=== PATIENT | female | born 1980 | race Caucasian/White ===

== ENCOUNTER → 2017-05-07 09:54 | Outpatient (CLI) | payer OTHER, SELFPAY ==
--- NOTE | 2017-05-07 10:01 | US_ITS ---
US abdomen limited: HISTORY: Right upper quadrant pain with nausea and fever ITS.REASON: RUQ PAIN ORDERING PHYSICIAN: Rema Eduardo PATIENT AGE: 36 years COMPARISON: None FINDINGS: PANCREAS: Unremarkable. No obvious mass or abnormal fluid collection. No ductal dilatation LIVER: No focal liver lesions demonstrated. Homogeneous echogenicity. No intrahepatic biliary ductal dilatation evident RIGHT KIDNEY: Unremarkable. Normal size and echogenicity. No hydronephrosis GALLBLADDER: No gallstones, gallbladder wall thickening, pericholecystic fluid, or biliary dilatation. IMPRESSION: Negative gallbladder/right upper quadrant ultrasound
[2017-05-07 10:52] LABS: Basophils # 0.1 K/mm3 (0-0.2); Basophils % 0.7 % (0.1-2.0); Eosinophils # 0.5 K/mm3 (0.0-0.4); Hematocrit 40.6 % (37.0-47.0); Hemoglobin 13.7 g/dL (12.2-16.2); Lymphocytes # 2.1 K/mm3 (0.7-4.5); Lymphocytes % 29.6 K/mm3 (10-50); Mean Corpuscular HGB Conc 33.8 g/dL (31.8-35.4); Mean Corpuscular Volume 91.8 fl (81-99); Mean Platelet Volume 8.6 fl (7.4-10.4); Monocytes # 0.4 K/mm3 (0.1-1.0); Monocytes % 6.1 % (1.7-9.3); Neutrophils # 4.1 K/mm3 (1.8-7.8); Neutrophils % 56.7 % (37.0-80.0); Platelet Count 288 K/mm3 (142-424); Red Blood Count 4.42 M/mm3 (4.20-5.40); Red Cell Distribution Width 12.7 % (11.5-17.5); White Blood Count 7.2 K/mm3 (4.8-10.8)
[2017-05-07 11:34] LABS: Alanine Aminotransferase 27 U/L (12-78); Albumin Level 3.7 gm/dL (3.4-5.0); Albumin/Globulin Ratio 1.1 (1.1-1.8); Alkaline Phosphatase 72 U/L (46-116); Anion Gap 11.5 mEq/L (5-15); Aspartate Amino Transferase 11 U/L (15-37); Bilirubin,Total 0.2 mg/dL (0.2-1.0); Blood Urea Nitrogen 14 mg/dL (7-18); Calcium 8.9 mg/dL (8.5-10.1); Carbon Dioxide 29 mmol/L (21.0-32.0); Chloride 106 mmol/L (98-107); Creatinine,Serum 0.61 mg/dL (0.55-1.02); Estimated Glomerular Filt Rate 112 ml/min (>60); GFR (African American) 135 ML/MIN (>60); Globulin 3.3 gm/dl (1.3-3.2); Glucose 95 mg/dL (74-106); Potassium 4.5 mmoL/L (3.5-5.1); Sodium 142 mmol/L (136-145)
== END ==
PROVIDERS: PCP Internal Medicine Adolescent Medicine; Visit Provider Nurse Practitioner Family
DX: R10.11 Right upper quadrant pain (principal)
CPT/HCPCS: 36415; 76705; 80053; 85025

== ENCOUNTER → 2017-06-13 10:32 | Outpatient (CLI) | payer OTHER, SELFPAY ==
--- NOTE | 2017-06-13 10:40 | NM_ITS ---
NM hepatobiliary wo pharm HISTORY: Right upper quadrant pain ITS.REASON: RUQ PAIN, GERD ORDERING PHYSICIAN: Rema Eduardo PATIENT AGE: 36 years COMPARISON: None DOSE: 7.84 MCI technetium Choletec Fatty Meal: Ensure FINDINGS: Homogeneous activity is present within the hepatic parenchyma. Activity is present in the gallbladder by 10 minutes. Activity is present in the small bowel by 50 minutes. The gallbladder ejection fraction is calculated to be 32% The patient did not report pain or other symptoms during the fatty meal. IMPRESSION: 1. No evidence of common or cystic duct obstruction. 2. Slightly low gallbladder ejection fraction which may indicate mild gallbladder dyskinesia. Please correlate with clinical findings.
== END ==
PROVIDERS: Family Provider Nurse Practitioner Family; PCP Internal Medicine Adolescent Medicine; Visit Provider Nurse Practitioner Family
DX: R10.11 Right upper quadrant pain (principal); K21.9 Gastro-esophageal reflux disease without esophagitis
CPT/HCPCS: 78226; A9537

== ENCOUNTER → 2017-07-23 18:28 | Outpatient (CLI) | payer OTHER, SELFPAY | PROVIDERS: PCP Internal Medicine Adolescent Medicine; Visit Provider Nurse Practitioner Family | DX: G47.30 Sleep apnea, unspecified (principal); R06.83 Snoring; Z68.41 Body mass index [BMI] 40.0-44.9, adult | CPT/HCPCS: 95806 ==

== ENCOUNTER → 2017-12-19 20:24 | Outpatient (CLI) | payer OTHER, SELFPAY | PROVIDERS: PCP Internal Medicine Adolescent Medicine; Visit Provider Nurse Practitioner Family | DX: G47.33 Obstructive sleep apnea (adult) (pediatric) (principal); G47.30 Sleep apnea, unspecified; R06.83 Snoring; E66.9 Obesity, unspecified | CPT/HCPCS: 95810 ==

== ENCOUNTER 2019-09-30 15:00 | Outpatient (RCR) | payer OTHER, SELFPAY ==
--- NOTE | 2019-08-25 11:32 | HMH.PTOPEV ---
PT Outpatient Evaluation Rehab PT Outpatient Evaluation Start: 08/25/19 11:22 Freq: Status: Active Protocol: Document 08/25/19 11:22 WALDO (Rec: 08/25/19 11:32 WALDO [id number]) Electronically Signed By Jose Cruz Choe, PT 08/25/19 11:22 Outpatient Therapy Subjective History Subjective History Pt reports insidious onset CT junction area pain, as well as R sided neck pain and radicular s/s into RUE. 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 Pt reports weakness and numbness in RUE w/this episode . Chief Complaint Pain,Stiff,Paresthesia, Weakness Symptom Type Ache,Sharp,Dull,Numbness Symptoms Relieved By Rest/Positioning,Heat, Prescription Meds Symptoms Aggravated By Sitting Prior Functional Limitations Desk Work/Reading Current Functional Limitations Reaching,Lifting,Housework, Desk Work/Reading Level of pain today (0-10) 2 Pain scale - at its best (0-10) 1 Pain scale - at its worst (0-10) 7 Cervical Eval Palpation Cervical Muscles R Cervical Paraspinal,L Cervical Paraspinal,R CT Junction,L CT Junction,R Upper Trapezius,L Upper Trapezius Cervical/Thoracic Palpation Findings Tenderness,Trigger Point Posture Head/C-Spine Posture Sitting Position Flexed Head/C-Spine Posture Standing Position Flexed Flexibility Deficits Upper Trapezius Muscle Length (R) Moderate Tightness,(L) Moderate Tightness Levaetor Scapulae Muscle Length (R) Moderate Tightness,(L) Moderate Tightness Scalene Group Muscle Length (R) Moderate Tightness,(L) Moderate Tightness Passive Joint Mobility Cervical PIVM WNL: R OA L OA R AA L AA R C2/3 L C2/3 R C3/4 L C3/4 R C4/5 L C4/5 R C5/6 L C5/6 R C6/7 L C6/7 R C7/T1
--- NOTE | 2019-09-30 15:27 | HMH.RHREAS ---
Rehab Reassessment Rehab OP Re-assessment Start: 09/30/19 15:01 Freq: Status: Active Protocol: Document 09/30/19 15:03 JIMMARGAUX (Rec: 09/30/19 15:13 JIMMARGAUX [id number]) Electronically Signed By Jose Cruz Choe, PT 09/30/19 15:03 Rehab Re-assessment Subjective Subjective Pt reports being on vacation for ~ 2 weeks, and 'I haven't been in pain for that long, but I'm not sure how long this is gonna last'. Objective Objective Notes CROM: FLX 0-55, EXT 0-55, B SB 0-40, B ROT 0-45 MMT: B DELTOID 4-4+/5, B BICEP 4+/5, B TRICEP 4+/5, B WRIST FLX/EXT 5/5 TTP: B UT 0-03/29, CT JUNCTION S .P. /4 Assessment Progress Assessment Progressing as Expected Assessment Notes PT W/MARKED IMPROVEMENT IN CROM, STRENGTH, AND TTP Patient goals met STG'S 12/02 LTG'S 07/02 Goals Not Met LTG'S 08/01 Plan Plan PT TO CONT. W/SKILLED P.T. TO MAKE FURTHER IMPROVEMENTS IN CROM, STRENGTH, AND TTP TO ALLOW FOR OPTIMAL FUNCTION Frequency of Therapy 1-2X/WK Duration of therapy 3-4WKS Time and Billing Re-Eval Time 15 Re-Eval Billing Units 1 PHYSICIAN CERTIFICATION: I certify the specified therapy services for Sayra Arizmendi Bailon are required, authorized, and reviewed every 30 days.
== END 2019-09-30 15:05 | disposition home or self-care (01) ==
LOC: PT 15:00
PROVIDERS: PCP Internal Medicine Adolescent Medicine; Visit Provider Internal Medicine Adolescent Medicine
DX: M54.12 Radiculopathy, cervical region (principal)
CPT/HCPCS: 20560; 97010; 97012; 97014; 97035; 97110; 97163; 97164; G0283

== ENCOUNTER → 2020-01-23 08:24 | Outpatient (CLI) | payer OTHER, SELFPAY ==
[2020-01-23 08:39] LABS: Basophils # 0.1 K/mm3 (0-0.2); Eosinophils # 0.4 K/mm3 (0.0-0.4); Eosinophils % 4.9 % (0.1-12.0); Hemoglobin 14.7 g/dL (12.2-16.2); Lymphocytes % 24.9 % (10-50); Mean Corpuscular HGB Conc 34.9 g/dL (31.8-35.4); Mean Corpuscular Hemoglobin 31.9 pg (27.0-31.2); Mean Corpuscular Volume 91.2 fl (81-99); Mean Platelet Volume 8.3 fl (7.4-10.4); Monocytes # 0.4 K/mm3 (0.1-1.0); Monocytes % 5.1 % (1.7-9.3); Neutrophils # 5.2 K/mm3 (1.8-7.8); Platelet Count 370 K/mm3 (142-424); Red Cell Distribution Width 13.1 % (11.5-17.5); White Blood Count 8.1 K/mm3 (4.8-10.8)
[2020-01-23 10:18] LABS: Alanine Aminotransferase 16 U/L (12-78); Albumin Level 4.5 g/dl (3.5-5.0); Albumin/Globulin Ratio 1.6 (1.1-1.8); Alkaline Phosphatase 69 U/L (38-126); Anion Gap 14.4 mEq/L (5-15); Aspartate Amino Transferase 22 U/L (14-36); Bilirubin,Total 0.6 mg/dl (0.2-1.3); Blood Urea Nitrogen 13 mg/dl (7-17); Calcium 9.9 mg/dl (8.4-10.2); Carbon Dioxide 28 mmol/L (22.0-30.0); Chloride 105 mmol/L (98-107); Chol/HDL Ratio 2.6 (1-3.5); Cholesterol 149 mg/dl (140-200); Estimated Glomerular Filt Rate 94 ml/min (>60); GFR (African American) 113 ML/MIN (>60); Globulin 2.9 g/dL (1.3-3.2); Glucose 87 mg/dl (74-100); HDL Cholesterol 58 mg/dl (40-60); Potassium 4.4 mmoL/L (3.5-5.1); Sodium 143 mmol/L (136-145); Total Protein,Serum 7.4 g/dl (6.3-8.2); Triglycerides 68 mg/dl (30-150); VLDL Cholesterol 14 mg/dL (0-40)
[2020-01-23 10:29] LABS: Direct LDL Cholesterol 74.13 mg/dL (100-129)
[2020-01-23 10:47] LABS: Thyroid Stimulating Hormone 2.23 uIU/mL (0.465-4.68)
[2020-01-23 10:52] LABS: Hemoglobin A1C 5.2 % (4.0-6.0)
== END ==
PROVIDERS: Visit Provider Nurse Practitioner Family
DX: Z00.00 Encounter for general adult medical examination without abnormal findings (principal); Z79.899 Other long term (current) drug therapy
CPT/HCPCS: 36415; 80053; 80061; 83036; 84443; 85025

== ENCOUNTER 2020-06-06 14:52 | Emergency (ER) | payer OTHER, SELFPAY ==
[2020-06-06 14:58] VITALS: BP 133/90; PULSE 73; RESP 18; TEMP 36.6; O2SAT 98; BMI 34.7
[2020-06-06 15:09] VITALS: BP 136/87; PULSE 79; RESP 18; TEMP 36.8; O2SAT 99; BMI 34.9
[2020-06-06 15:18] LABS: UTC Strep Screen (Rapid) Negative (Negative)
--- NOTE | 2020-06-06 15:31 | HMH.EDUTC ---
[facility] Disposition Clinical Impression: Stomatitis Pharyngitis Qualifiers: Pharyngitis/tonsillitis etiology: unspecified etiology Qualified Code(s): J02.9 - Acute pharyngitis, unspecified Disposition: Home, Self-Care Condition on Discharge: Good Instructions: DI for Pharyngitis/Tonsillopharyngitis -- Adult Additional Instructions: Drink plenty of fluids. Take tylenol for pain or fever. Return if your symptoms are worsening. Follow up with your regular doctor. GO TO THE ER FOR ANY WORSENING SYMPTOMS Prescriptions: predniSONE [Deltasone 10mg tablet] 10 mg PO BID 4 Days #8 tab Transmission Status: Received by [facility] # Azithromycin [Z-Grant 250mg Tab*] 250 mg PO UD DOSE PK #6 tab Transmission Status: Received by [facility] # Referrals: Morris Stephens MD [Primary Care Provider] - Time of Disposition: 15:34 Medical Decision Making - Medical Records Medical records reviewed: No: I reviewed the patient's medical records. - Jhonathan Inquiry Pt receiving controlled substance: No Vital Signs: 06/06/20 14:58 06/06/20 15:09 06/06/20 15:36 Temperature 97.9 F 98.2 F 98 F Temperature Source Oral Oral Oral Pulse Rate 74 Pulse Rate [Right Brachial] 73 79 Respiratory Rate 18 18 19 Blood Pressure 132/87 Blood Pressure [Right Arm] 133/90 136/87 Blood Pressure Mean [Right Arm] 104 103 Blood Pressure Source [Right Arm] Automatic Cuff Automatic Cuff Blood Pressure Position Sitting Blood Pressure Position [Right Arm] Sitting Sitting 02 Sat by Pulse Oximetry 98 99 Oxygen Delivery Method Room Air Room Air - Lab Data Lab results reviewed: Yes: I reviewed the patient's lab results. Lab Results 06/06/20 15:08: Strep Scn Rapid Clinic Negative Orders (Tests/Meds): ORDERS Category Date Time Status Strep Screen Confirmation Stat Micro 06/06/20 15:08 Received [facility] HPI - General Stated complaint: sore throat,fatigued Time Seen by Provider: 06/06/20 15:31 Mode of Arrival: Ambulatory Source of Information: Patient Limitations: No Limitations Description of Symptoms (Recalled from Triage Doc. by RN): pt is having a sore throat and thinks its strep. HEENT Symptoms (Recalled from RN notes): Yes (sore throat) Resp Symptoms (Recalled from RN notes): No Skin Symptoms (Recalled from RN notes): No MS Symptoms (Recalled from RN notes): No Functional Status (Recalled from RN notes): na - History of Present Illness Provider Complaint: She is here with c/o sore throat and mouth irritation for the past 2 days. - Related Data Home Medications Medication Instructions Recorded Confirmed omeprazole 20 mg capsule,delayed PO #30 cap 07/19/18 07/19/18 release Previous Rx's Medication Instructions Recorded yhsoegozjpunjbp-edyirtcmqorwpdp-CN 10 ml PO Q4-6H PRN #220 ml 07/19/18 2 mg-30 mg-10 mg/5 mL oral syrup Ciprofloxacin HCl [Cipro 500mg 500 mg PO BID 7 Days #14 tab 04/02/19 Tab] Ketorolac Tromethamine [Toradol 10 mg PO Q6H PRN 5 Days #20 tab 04/02/19 10mg tablet] Nitrofurantoin Monohyd/M-Cryst 100 mg PO BID 7 Days #14 cap 04/02/19 [Macrobid 100 mg Capsule] Azithromycin [Z-Grant 250mg Tab*] 250 mg PO UD DOSE PK #6 tab 06/06/20 predniSONE [Deltasone 10mg tablet] 10 mg PO BID 4 Days #8 tab 06/06/20 Allergies Allergy/AdvReac Type Severity Reaction Status Date / Time Sulfa (Sulfonamide Allergy Intermediate I-HIVES Verified 06/06/20 15:12 Antibiotics) [SULFA (SULFONAMIDE ANTIBIOTICS)] - Worker's Comp Is this a Worker's Comp case?: No [facility] History - Hepatitis A Screen Drug use history?: No High risk sexual behaviors?: No History of sexually transmitted infection?: No Currently employed?: No Childcare worker?: No Do you have indoor plumbing?: Yes Do you have electricity?: Yes Attestation statement:: This patient has been screened for Hepatitis A risk factors. I have reviewed the patient's past m
[2020-06-06 15:36] VITALS: BP 132/87; PULSE 74; RESP 19; TEMP 36.6
== END 2020-06-06 15:41 | disposition home or self-care (01) ==
PROVIDERS: Emergency Provider Emergency Medicine; PCP Internal Medicine Adolescent Medicine
DX: K12.1 Other forms of stomatitis (principal); J02.9 Acute pharyngitis, unspecified; K21.9 Gastro-esophageal reflux disease without esophagitis; Z88.2 Allergy status to sulfonamides
CPT/HCPCS: 87880; 99202; G0463

== ENCOUNTER → 2020-07-21 10:13 | Outpatient (CLI) | payer OTHER, SELFPAY ==
[2020-07-21 11:49] LABS: Thyroid Stimulating Hormone 2.04 uIU/mL (0.465-4.68)
[2020-07-21 11:52] LABS: Ferritin 46.5 ng/ml (6.24-137)
== END ==
PROVIDERS: Visit Provider Physician Assistant Medical
DX: L64.9 Androgenic alopecia, unspecified (principal)
CPT/HCPCS: 36415; 82306; 82728; 84443

== ENCOUNTER → 2020-10-26 13:43 | Outpatient (CLI) | payer OTHER, SELFPAY ==
[2020-10-26 13:45] LABS: Microscopic, Urine URINE MICROSCOPIC (MICROSCOPIC)
[2020-10-26 14:13] LABS: Appearance,Urine SL CLOUDY (Clear); Bilirubin,Urine Negative (Negative); Blood, Urine 3+ (Negative); Color,Urine AMBER (Yellow); Glucose,Urine (UA) Negative (Negative); Ketones,Urine Negative (Negative); Leukocyte Esterase,Urine 3+ (Negative); Nitrate,Urine Negative (Negative); Protein,Urine TRACE (Negative); Urobilinogen,Urine 0.2 EU/dl (0.2)
[2020-10-26 14:25] LABS: Bacteria,Urine Trace /lpf
== END ==
PROVIDERS: Visit Provider Nurse Practitioner Family
DX: R30.0 Dysuria (principal)
CPT/HCPCS: 81001; 87086

== ENCOUNTER → 2021-02-21 13:41 | Outpatient (CLI) | payer OTHER, SELFPAY | PROVIDERS: PCP Internal Medicine Adolescent Medicine; Visit Provider Nurse Practitioner | DX: Z20.822 Contact with and (suspected) exposure to COVID-19 (principal) | CPT/HCPCS: C9803; U0003; U0005 ==

== ENCOUNTER → 2021-04-05 11:39 | Outpatient (CLI) | payer OTHER, SELFPAY | PROVIDERS: Visit Provider Nurse Practitioner | DX: Z20.822 Contact with and (suspected) exposure to COVID-19 (principal) | CPT/HCPCS: C9803; U0003; U0005 ==

== ENCOUNTER → 2022-01-27 16:19 | Outpatient (CLI) | payer OTHER, SELFPAY ==
--- NOTE | 2022-01-27 16:22 | MM_ITS ---
PROCEDURE INFORMATION: Exam: Bilateral Screening 3D Mammography Exam date and time: 01/27/2022 4:16 PM Age: 41 years old Clinical indication: Baseline. Her maternal grandmother, maternal great grandfather, and maternal cousin had breast cancer. TECHNIQUE: Imaging protocol: Bilateral Screening tomosynthesis and 2D mammography including computer-aided detection (CAD) when performed. COMPARISON: No relevant prior studies available. FINDINGS: MAMMOGRAPHY: Breast composition: There are scattered areas of fibroglandular density. Mass: None. Architectural distortion: None. Calcifications: No suspicious calcifications. Asymmetric density: None. Skin thickening: None. Axillary adenopathy: None. IMPRESSION: No mammographic evidence of malignancy. Annual screening is recommended unless otherwise clinically indicated. ASSESSMENT: BI-RADS Category 1: Negative
== END ==
PROVIDERS: PCP Internal Medicine Adolescent Medicine; Visit Provider Internal Medicine Adolescent Medicine
DX: Z12.31 Encounter for screening mammogram for malignant neoplasm of breast (principal)
CPT/HCPCS: 77063; 77067

== ENCOUNTER → 2022-02-23 14:36 | Outpatient (CLI) | payer OTHER, SELFPAY ==
--- NOTE | 2022-02-23 14:44 | US_ITS ---
PROCEDURE INFORMATION: Exam: US Left Breast, Complete Exam date and time: 02/23/2022 3:20 PM Age: 41 years old Clinical indication: Recall on the basis of screening mammogram 01/27/2022 for sonography bilateral sub cm nodular nonfocal asymmetries. TECHNIQUE: Imaging protocol: Complete ultrasound of all four quadrants of the Left breast and the retroareolar regions, including ultrasound of the axilla when performed. COMPARISON: MG MM DIG SCREENING MAMM BI W/CAD 01/27/2022 4:16 PM FINDINGS: Breast: Bilateral sonography, all 4 quadrants, retroareolar and axilla. No cystic or solid mass, or non masslike sonographic finding is demonstrated on either side with particular attention to the area of pain indicated on the right at 8 o'clock 5 cm from the nipple. Sonographically unremarkable bilateral axillary lymph nodes. IMPRESSION: No sonographic evidence of malignancy. Annual mammographic screening is recommended unless otherwise clinically indicated. ASSESSMENT: BI-RADS Category 2: Benign
--- NOTE | 2022-02-23 14:44 | US_ITS ---
PROCEDURE INFORMATION: Exam: US Right Breast, Complete Exam date and time: 02/23/2022 3:01 PM Age: 41 years old Clinical indication: Recall on the basis of screening mammogram 01/27/2022 for sonography bilateral sub cm nodular nonfocal asymmetries. TECHNIQUE: Imaging protocol: Complete ultrasound of all four quadrants of the Right breast and the retroareolar regions, including ultrasound of the axilla when performed. COMPARISON: MG MM DIG SCREENING MAMM BI W/CAD 01/27/2022 4:16 PM FINDINGS: Breast: Bilateral sonography, all 4 quadrants, retroareolar and axilla. No cystic or solid mass, or non masslike sonographic finding is demonstrated on either side with particular attention to the area of pain indicated on the right at 8 o'clock 5 cm from the nipple. Sonographically unremarkable bilateral axillary lymph nodes. IMPRESSION: No sonographic evidence of malignancy. Annual mammographic screening is recommended unless otherwise clinically indicated. ASSESSMENT: BI-RADS Category 2: Benign
== END ==
PROVIDERS: PCP Internal Medicine Adolescent Medicine; Visit Provider Nurse Practitioner Family
DX: R92.8 Other abnormal and inconclusive findings on diagnostic imaging of breast (principal)
CPT/HCPCS: 76641

== ENCOUNTER → 2023-03-15 13:22 | Outpatient (CLI) | payer OTHER, SELFPAY ==
--- NOTE | 2023-03-15 13:27 | XR_ITS ---
FINAL REPORT CLINICAL HISTORY: Right knee pain COMPARISON: None FINDINGS: Three views of the right knee were obtained. There is no acute fracture or dislocation. There is an ossific density along the medial aspect of the patellofemoral joint. It is unusual and appears to arise from the distal femur. This may be sequela from old trauma or unusual exostosis. The joint spaces are intact. There is no soft tissue abnormality. IMPRESSION: Unusual ossific density medial aspect patellofemoral joint. Recommend CT to better characterize. Reviewed, Interpreted and Dictated by Stanton Edmondson MD Transcribed by Kathe Reilly Authenticated and [facility]
--- NOTE | 2023-03-15 13:27 | XR_ITS ---
FINAL REPORT CLINICAL HISTORY: Left knee pain COMPARISON: None FINDINGS: LEFT KNEE 3 views of the left knee were obtained. There is no acute fracture or dislocation. Visualized joint spaces are normally aligned. There are small osteophytes along the undersurface of the patella. Soft tissues are unremarkable. IMPRESSION: No acute bony abnormality. Reviewed, Interpreted and Dictated by Stanton Edmondson MD Transcribed by Kathe Reilly Authenticated and [facility]
== END ==
PROVIDERS: PCP Internal Medicine Adolescent Medicine; Visit Provider Nurse Practitioner Family
DX: M25.561 Pain in right knee (principal); M25.562 Pain in left knee; G89.29 Other chronic pain
CPT/HCPCS: 73562

== ENCOUNTER 2023-06-21 09:42 | Outpatient (CLI) | payer OTHER, SELFPAY ==
[2023-06-21 10:01] LABS: Hemoglobin 14.6 g/dL (12.2-16.2); Mean Corpuscular HGB Conc 33.1 g/dL (31.8-35.4); Mean Corpuscular Hemoglobin 32.3 pg (27.0-31.2); Mean Corpuscular Volume 97.3 fl (81-99); Platelet Count 350 K/mm3 (142-424); Red Blood Count 4.52 M/mm3 (4.20-5.40); Red Cell Distribution Width 13.3 % (11.5-17.5); White Blood Count 6.8 K/mm3 (4.8-10.8)
[2023-06-21 11:11] LABS: Chloride 107 mmol/L (98-107)
[2023-06-21 11:12] LABS: Albumin Level 4.5 g/dl (3.5-5.0); Potassium 4.7 mmoL/L (3.5-5.1); Sodium 139 mmol/L (136-145)
[2023-06-21 11:15] LABS: Anion Gap 10.7 mEq/L (5-15); Blood Urea Nitrogen 12 mg/dl (7-17); Calcium 9.9 mg/dl (8.4-10.2); Carbon Dioxide 26 mmol/L (22.0-30.0); Estimated Glomerular Filt Rate 110 ml/min (>60); GFR (African American) 133 ML/MIN (>60); Glucose 78 mg/dl (74-100)
== END 2023-06-21 23:59 ==
LOC: LAB 09:43
PROVIDERS: PCP Internal Medicine Adolescent Medicine; Visit Provider Orthopaedic Surgery Adult Reconstructive Orthopaedic Surgery
DX: Z01.818 Encounter for other preprocedural examination (principal)
CPT/HCPCS: 36415; 80048; 82040; 85014; 85018; 85048; 85049

== ENCOUNTER 2023-10-31 16:00 | Outpatient (RCR) | payer OTHER, SELFPAY | END 2023-10-31 16:05 | disposition home or self-care (01) | LOC: PT 16:00 | PROVIDERS: Visit Provider Orthopaedic Surgery Adult Reconstructive Orthopaedic Surgery | DX: M25.561 Pain in right knee (principal); S80.251A Superficial foreign body, right knee, initial encounter | CPT/HCPCS: 97010; 97014; 97016; 97035; 97110; 97112; 97163; 97164; 97530; G0283 ==

== ENCOUNTER 2024-01-24 10:30 | Outpatient (CLI) | payer OTHER, SELFPAY ==
[2024-01-24 11:04] LABS: Basophils # 0.1 K/mm3 (0-0.2); Basophils % 1.1 % (0.1-2.0); Eosinophils # 0.3 K/mm3 (0.0-0.4); Eosinophils % 4.5 % (0.1-12.0); Hematocrit 41.8 % (37.0-47.0); Hemoglobin 14.3 g/dL (12.2-16.2); Lymphocytes % 33.6 % (10-50); Mean Corpuscular HGB Conc 34.3 g/dL (31.8-35.4); Mean Corpuscular Hemoglobin 31.7 pg (27.0-31.2); Mean Corpuscular Volume 92.6 fl (81-99); Mean Platelet Volume 8.4 fl (7.4-10.4); Monocytes # 0.2 K/mm3 (0.1-1.0); Monocytes % 4.1 % (1.7-9.3); Neutrophils # 3.3 K/mm3 (1.8-7.8); Neutrophils % 56.7 % (37.0-80.0); Platelet Count 364 K/mm3 (142-424); Red Blood Count 4.52 M/mm3 (4.20-5.40); Red Cell Distribution Width 13.4 % (11.5-17.5); White Blood Count 5.9 K/mm3 (4.8-10.8)
[2024-01-24 11:53] LABS: Albumin Level 4.5 g/dl (3.5-5.0); Chloride 108 mmol/L (98-107); Sodium 140 mmol/L (136-145)
[2024-01-24 11:54] LABS: Potassium 4.4 mmoL/L (3.5-5.1)
[2024-01-24 11:56] LABS: Alanine Aminotransferase 14 U/L (12-78); Albumin/Globulin Ratio 1.7 (1.1-1.8); Alkaline Phosphatase 40 U/L (38-126); Amylase 61 U/L (30-110); Anion Gap 12.4 mEq/L (5-15); Aspartate Amino Transferase 27 U/L (14-36); Bilirubin,Total 0.8 mg/dl (0.2-1.3); Blood Urea Nitrogen 7 mg/dl (7-17); Calcium 9.5 mg/dl (8.4-10.2); Carbon Dioxide 24 mmol/L (22.0-30.0); Estimated Glomerular Filt Rate 110 ml/min (>60); GFR (African American) 133 ML/MIN (>60); Globulin 2.6 g/dL (1.3-3.2); Glucose 85 mg/dl (74-100); Lipase 79 U/L (23-300); Total Protein,Serum 7.1 g/dl (6.3-8.2)
== END 2024-01-24 23:59 | disposition home or self-care (01) ==
LOC: LAB 10:31
PROVIDERS: PCP Internal Medicine Adolescent Medicine; Visit Provider Nurse Practitioner Family
DX: R10.10 Upper abdominal pain, unspecified (principal)
CPT/HCPCS: 36415; 80053; 82150; 83690; 85025

== ENCOUNTER 2024-01-30 08:37 | Outpatient (CLI) | payer OTHER, SELFPAY ==
--- NOTE | 2024-01-30 08:40 | US_ITS ---
FINAL REPORT CLINICAL HISTORY: UPPER ABD PAIN COMPARISON: None FINDINGS: Sonographic images of the right upper quadrant were obtained. The pancreas is unremarkable.The liver has an unremarkable appearance.The gallbladder appears normal without evidence of gallstones.There is no evidence of biliary ductal dilatation.The common duct measures 3 mm. Limited images of the right kidney are unremarkable. IMPRESSION: Unremarkable right upper quadrant ultrasound. Reviewed, Interpreted and Dictated by Johnathon Cabral III, MD Transcribed by Kathe Reilly Authenticated and [facility]
== END 2024-01-30 23:59 | disposition home or self-care (01) ==
LOC: RAD 08:37
PROVIDERS: PCP Internal Medicine Adolescent Medicine; Visit Provider Nurse Practitioner Family
DX: R10.10 Upper abdominal pain, unspecified (principal)
CPT/HCPCS: 76705

== ENCOUNTER 2024-02-15 08:34 | Outpatient (CLI) | payer OTHER, SELFPAY ==
--- NOTE | 2024-02-15 08:37 | FL_ITS ---
FINAL REPORT CLINICAL HISTORY: UPPER ABD PAIN 1.48 fluoro 854.03 dap FINDINGS: UPPER GI SERIES, SINGLE CONTRAST HISTORY: Acute right upper quadrant abdominal pain. TECHNIQUE: The patient ingested thick and thin barium contrast. Spot and overhead films were performed. A total of 35 images were saved. FINDINGS: The esophagus demonstrates no morphologic abnormalities. No mucosal defects are seen and motility appears normal. There is a questionable minimal hiatal hernia. There are postoperative changes of gastric sleeve. There is no leak or obstruction. No gastric filling defects are seen. The duodenal bulb and sweep appear unremarkable. No episodes of gastroesophageal reflux observed. 13 mm barium tablet is delayed at the level of the aortic arch for several minutes. This does eventually pass into the stomach. FLUOROSCOPY TIME: 1.48 minutes Radiation exposure in Total DAP: 854.03 uGym2 IMPRESSION: Questionable very minimal hiatal hernia. 13 mm barium tablet is delayed at the level of the aortic arch for several minutes. This does eventually pass into the stomach. Consider correlation with EGD. Otherwise, unremarkable upper GI series. Reviewed, Interpreted and Dictated by Stanton Edmondson MD Transcribed by Sandra Grande PA-C Authenticated and . [facility]
[2024-02-15] MEDS: BARIUM SULFATE(E-Z-AC);750ML BOTTLE 750 ML PO (09:37)
[2024-02-15] MEDS: BARIUM SULFATE (E-Z-HD 340GM);135ML BOTTLE 135 ML PO (09:37)
== END 2024-02-15 23:59 | disposition home or self-care (01) ==
LOC: RAD 08:35
PROVIDERS: PCP Internal Medicine Adolescent Medicine; Visit Provider Nurse Practitioner Family
DX: R10.10 Upper abdominal pain, unspecified (principal)
CPT/HCPCS: 74246

== ENCOUNTER 2024-06-12 13:26 | Outpatient (CLI) | payer OTHER, SELFPAY ==
--- NOTE | 2024-06-12 13:30 | XR_ITS ---
FINAL REPORT CLINICAL HISTORY: COCCYDYNIA FINDINGS: Sacrum/coccyx Three views were obtained. There is no fracture or dislocation. There is abnormal angulation at the sacrococcygeal junction which could be sequela of previous trauma or congenital. Sacroiliac joints are intact. There are oval densities in the right abdomen, probably represent tablets in the right GI tract. No soft tissue abnormality is identified. IMPRESSION: Abnormal angulation at the sacrococcygeal junction which may be sequela of previous trauma or congenital. Reviewed, Interpreted and Dictated by Hailee Frye MD Transcribed by Keyla Shabazz Authenticated and [facility]
== END 2024-06-12 23:59 | disposition home or self-care (01) ==
LOC: RAD 13:27
PROVIDERS: PCP Internal Medicine Adolescent Medicine; Visit Provider Nurse Practitioner Family
DX: M53.3 Sacrococcygeal disorders, not elsewhere classified (principal)
CPT/HCPCS: 72220

== ENCOUNTER 2024-07-07 08:07 | Outpatient (CLI) | payer OTHER, SELFPAY ==
--- NOTE | 2024-07-07 08:10 | MR_ITS ---
FINAL REPORT CLINICAL HISTORY: COCCYX PAIN no known injury COMPARISON: None FINDINGS: Multiplanar and multisequence imaging of the bony pelvis were obtained without contrast. Sagittal images were not obtained. Bone marrow signal intensity is preserved. There is no acute fracture, contusion or pathologic marrow replacement. Hip joint spaces are preserved. The femoral heads have normal smooth contours. The acetabular labral complexes are intact. The coccyx not optimally visualized without sagittal images. The labrum is intact. No convincing labral tear is identified. Signal intensity within the muscular structure is within normal limits. Remaining soft tissues are unremarkable. IMPRESSION: No acute findings on this limited exam. Reviewed, Interpreted and Dictated by Stanton Edmondson MD Transcribed by Kathe Reilly Authenticated and [facility]
--- OUTSIDE RECORDS SUMMARY | 2024-07-07 08:10 | XMS_ITS | Data Portability ---
Author Organization [facility] CRAIG maherS MONT[place]LLO CLOSED Address [address] [place] [address] Care Team Providers Care Children'S Librarian Name Role Phone RAULITO TATUMIN Automatic Gluing Machine Operator JANETH POON Primary Care Provider [phone] Assessment No assessment recorded. Plan of Treatment Reminders Order Date Submit Date Provider Last Modified By Organization Details Last Modified Time Details Appointments None record ed. Lab None record ed. Referral None record ed. Procedures None record ed. Surgeries None record ed. Imaging None record ed. Medication Orders None record ed. Patient TargetsNo targets recorded. Patient InstructionsNo instructions recorded. Reason for Referral None Reported. Procedures Surgical History Date Name Laterality Status Provider Name and Address Organization Details Recorded Time 03/27/19 24 DAK - Destruction BN Lesions completed Alycia Nieves [facility] 03/27/2023 11:03:50 Imaging Results None recorded. Procedure Notes None recorded. Medical Equipment None Reported. Allergies Allergen ID Allergen Name Allergen Category Reaction Reaction Severity Criticality Documentation Date Start Date Code Code System Note Provider Name and Address Organization Details Recorded Time [id number] Substance with sulfonami de structure and antibacte rial mechanism of action (substanc e) medicatio n Not available Not available Not available 03/27/2023 [id number] SNOMED [facility] 10:[facility] Medications Name Sig Start Date Stop Date Status Note LastModified by Organization Details LastModified Time omeprazole active Not Available Not Av ailable Not Available Vitals None Recorded Social History Question Answer Notes LastModified by Organizat ion Details LastModified Time Tobacco Smoking Status Current Every Day Smoker Taylor Chapin [facility] 03/27/2023 10:42:58 What Is Your Level Of Alcohol Consumption? Occasional Information not available 03/27/2023 Sunscreen Use? Yes Information not available 03/27/2023 Tanning Bed Use No Previous Use Information not available 03/27/2023 What Was The Date Of Your Most Recent Tobacco Screening? 03/27/2023 Information not available 03/27/2023 Sex: Unknown Functional Status None recorded. Mental Status None recorded. Family History Nothing Reported. Medical History No medical history recorded. Gynecological HistoryNo gynecological history recorded. Obstetrics History GPAL:G 0 P 0 0 0 0 Past Encounters Encounter ID Performer Location Encounter Start Date Encounter Closed Date Diagnosis/Indication Diagnosis SNOMED-CT Code Diagnosis ICD10 Code Diagnosis Note [id number] TORIN TAUTM PA-C [address] [address] [place] [address] 03/27/2023 10:16:22 03/28/2023 15:13:46 Multiple benign melanocytic nevi 388441493 D22.5 - Benign moles seen on exam today - SPF 30 or higher broad-spec trum sunscreen recommende d with re-applica tion every 2 hours - Discussed sun protection measures, including wide-brimm ed hat, sun-protec tive clothing, and avoidance of sun during peak hours of 10am-4pm - Avoid tanning beds as these can increase the chances of all 3 types of skin cancer - Instructed to monitor for changes and to call us for appointmen t with any changing or worrisome lesions Seborrheic keratosis [id number] L82.1 - Benign overgrowth s of skin - Hereditary Senile angioma 3371660 I 78.1 - Benign blood vessel growths - Hereditary Solar lentigo 51575703 L 81.4 - Benign brown spots - Sun-induce d Inflamed s eborrheic keratosis [id number] L82.0 Benign reassuranc e. Thickening of the skin. Can sometimes become irritated or inflamed. Can continue to get more over time. Plan to treat with LN2. Will crust over and fall off in about a week. Monitor for changes. Health Concerns Section Related Observation LastModified by Organization Detai ls LastModified Time None Recorded Concern Status LastModified by Organization Details LastModified Time None Recorded Advance Directives Directive None Recorded Payers Encounter Date Sequence Insurance Name Policy Number Policy Severino Covered Member ID Severino Member ID Guarantor Name 03/27/2023 1 [facility] [id number] Sayra Rivera Bailon Notes Date Note Type Note Provider Name and Address Organization Details Recorded Time 03/27/2023 text/html Patient is here for a full body skin exam. - Last skin check: First FSE at [facility].- No history of skin cancer.- Areas of concern: None mentioned. CHALO DUBOSE-C [address] [place], [address], [facility] - [facility] 03/27/2023 11:15:38 OBGyn Episode No OBEpisode recorded.
== END 2024-07-07 23:59 | disposition home or self-care (01) ==
LOC: RAD 08:08
PROVIDERS: PCP Internal Medicine Adolescent Medicine; Visit Provider Nurse Practitioner Family
DX: M53.3 Sacrococcygeal disorders, not elsewhere classified (principal)
CPT/HCPCS: 72195

== ENCOUNTER 2024-12-05 07:00 | Outpatient (CLI) | payer OTHER, SELFPAY ==
--- OUTSIDE RECORDS SUMMARY | 2024-12-05 07:02 | XMS_ITS | Encounter Summary ---
Author Organization [facility] Address [address] [place] [address] Care Team Providers Care Car Cleaning Supervisor Name Role Phone Morris Stephens MD Primary Care Provider [phone] Reason for Referral * Consultation (Routine) - Closed Specialty Diagnoses / Procedures Referred By Contdaniel t Referred To Contact General Surgery Diagnoses Upper abdominal pain Rema Eduardo APRN [address] [address] Phone: tel: fax: Kaushik Miller MD [address] [place] [address] Phone: tel: fax: Referral ID Status Reason Start Date Expiration Date V isits Requested Visits Authorized [id number] Closed Specialty Services Required 02/01/2024 08/02/2025 1 1 Encounter Details Date Type Department Care Team (Late st Contact Info) Description 02/01/2024 Community [facility] [address] [place] [address] Rema Eduardo APRN [address] [address] Upper abdominal pain (Primary Dx) Social History Tobacco Use Types Packs/Day Years Used Date Smoking Tobacco: Former Cigarettes Q uit: 2018 Smokeless Tobacco: Never Alcohol Use Standard Drinks/Week Comments Yes 0 (1 standard drink = 0.6 oz pur e alcohol) rare Comments No Sex and Gender Information Value Date Recorded Sex Assigned at Not on file Legal Sex Female 6:13 PM EDT Gender Identity Not on file Sexual Orientation Not on file documented as of this encounter Plan of Treatment Scheduled Referrals Name Type Priority Associated Diagnoses Order Schedule Ambulatory referral to Gastroenterology Outpatient Referral Routine Upper abdominal pain Ordered: 02/01/2024 documented as of this encounter Visit Diagnoses Diagnosis Upper abdominal pain- Primary documented in this encounter Additional Health Concerns Assessment Noted Time A fall risk assessment has been complete d for the patient 09/25/2023 10:45 AM EDT A Body Mass Index follow-up plan has been documented for the patient 09/25/2023 12:08 PM EDT documented as of this encounter Care Teams Car Cleaning Supervisor Relationship Specialty Start Date End Date Morris Stephens MD [address] [place] [address] PCP - General Internal Medicine 04/17/23 documented as of this encounter
--- OUTSIDE RECORDS SUMMARY | 2024-12-05 07:02 | XMS_ITS | Clinical Summary ---
Author Organization [facility] Address [address] [place] [address] Care Team Providers Care Benefits Administrator Name Role Phone Morris Stephens MD Primary Care Provider [phone] Allergies Active Allergy Reactions Criticality Noted Date Comments Sulfa Drugs Rash Low 11/18/2015 Medications tirzepatide (Mounjaro) 2.5 MG/0.5ML solution pen-injector solution pen-injector Inject 0.5 mL (2.5 mg) under the skin 1 (one) time per week. On Sundays Active doxycycline (Vibramycin) 100 MG capsule Take 1 capsule (100 mg) by mouth 2 (two) times a day. Take with at least 8 ounces (large glass) of water, do not lie down for 30 minutes after 20 capsule 4 Active Additional Information Patient not taking.Reported on 04/23/2024 acetaminophen (Tylenol) 500 MG tablet Take 2 tablets (1,000 mg) by mouth every 6 (six) hours if needed for pain. 100 tablet 4 Active senna-docusate sodium (Senokot-S) 8.6-50 MG tablet Take 1 tablet by mouth 1 (one) time each day. 14 tablet 4 Active Additional Information Patient not taking.Reported on 04/23/2024 oxyCODONE (Roxicodone) 5 MG immediate release tablet Take 1 tablet (5 mg) by mouth every 6 (six) hours if needed for severe pain for up to 30 doses. 30 tablet 4 Active Additional Information Patient not taking.Reported on 04/23/2024 meloxicam (Mobic) 15 MG tablet Take 1 tablet (15 mg) by mouth 1 (one) time each day. 30 tablet 3 4 Active Additional Information Patient not taking.Reported on 04/23/2024 methylPREDNISol one (Medrol Dospak) 4 MG tabletsIndicati ons:Foreign body of right knee,Right knee pain, unspecified chronicity,Quad riceps weakness Follow schedule on package instructions 21 tablet 4 Active Additional Information Patient not taking.Reported on 04/23/2024 traMADol (Ultram) 50 MG tablet Take 1 tablet (50 mg) by mouth at night if needed for moderate pain. 20 tablet 4 Active Additional Information Patient not taking.Reported on 04/23/2024 omeprazole (PriLOSEC) [address] capsule Take 1 capsule (20 mg) by mouth 2 (two) times a day. Do not crush or chew. Active Multiple Vitamins-Minera ls (BARIATRIC MULTIVITAMINS/I JOHN PO) Take by mouth. Activ e Active Problems Problem Noted Date Diagnosed Date Diarrhea 02/25/2024 GERD (gastroesophageal reflux disease) Overweight (BMI 25.0-29.9) 02/25/2024 History of sleeve gastrectomy 02/25/2024 Loose body in knee, right knee 07/04/2023 Foreign body of right knee 04/26/2023 Family History Medical History Relation Name Comments Conversions - Other Other Back pro blem Relation Name Status Comments Other Social History Tobacco Use Types Packs/Day Years Used Date Smoking Tobacco: Former Cigarettes Q uit: 2018 Smokeless Tobacco: Never Tobacco Cessation:Counseling Given: Yes Alcohol Use Standard Drinks/Week Comments Yes 0 (1 standard drink = 0.6 oz pur e alcohol) rare PHQ-2 Answer Date Recorded Patient Health Questionnaire-2 Score 0 04/23/2024 PHQ-9 Answer Date Recorded Patient Health Questionnaire-9 Score 0 04/23/2024 Comments No Sex and Gender Information Value Date Recorded Sex Assigned at Not on file Legal Sex Female 6:13 PM EDT Gender Identity Not on file Sexual Orientation Not on file Last Filed Vital Signs Vital Sign Reading Time Taken Comments Blood Pressure 112/77 04/23/2024 10:59 AM EST Pulse 64 04/23/2024 10:59 AM EST Temperature 36.8 C (98.3 F) 03/13/2024 12:15 PM EST Respiratory Rate 16 04/23/2024 10:59 AM EST Oxygen Saturation 97% 04/23/2024 10:59 AM EST Inhaled Oxygen Concentration - - Weight 65.4 kg (144 lb 1.6 oz) 04/23/2024 10:59 AM EST Height 156.2 cm (5' 1.5 ) 04/23/2024 10:59 AM ES T Body Mass Index 26.79 04/23/2024 10:59 AM EST Plan of Treatment Health Maintenance Due Date Last Done Comments [facility]-HIV Screening 1981 [facility]-Hepatitis C Screening 1981 [facility]-Infant/Child/Adol SDOH Screenings 1981 [facility]-Varicella Vaccines (1 of 2 - 13+ 2-dose series) 1994 [facility]- SDOH Screenings 08/06/1999 [facility]-Adult SDOH Screenings 08/06/1999 [facility]-DTaP,Tdap,and Td Vaccines (1 - Tdap) 2000 [facility]-Hepatitis B Vaccines (1 of 3 - 19+ 3-dose series) 2000 HPV Vaccines (1 - 3-dose SCDM series) 2008 [id number] Vaccine (2024- season) 2024 02/04/2021, 06/23/2020, 05/26/2020 [facility]-Influenza Vaccine (#1) 11/24/202403/15, 02/23/2022, 12/28/2020, Additional history exists [facility]-Depression Screening 04/23/2025 04/23/2024, 03/27 [facility]-Zoster Vaccines (1 of 2) 08/06/2031 [facility]-Obesity Intervention Completed 025, 02/25/2024, 09/25/2023, Additional history exists [facility]-HIB Vaccines Aged Out No longer e ligible based on patient's age to complete this topic [facility]-Hepatitis A Vaccines Aged Out No longer eligible based on patient's age to complete this topic [facility]-IPV Vaccines Aged Out No longer e ligible based on patient's age to complete this topic [facility]-Pneumococcal Vaccine: Pediatrics (0 to 5 Years) and At-Risk Patients (6 to 49 Years) Aged Out No longer eligible based on patient's age to complete this topic [facility]-Rotavirus Vaccines Aged Out No lo nger eligible based on patient's age to complete this topic Insurance [facility] Care Teams Benefits Administrator Relationship Specialty Start Date End Date Morris Stephens MD [address] [facility] [address] [facility] PCP - General Internal Medicine 04/17/23
--- NOTE | 2024-12-05 07:06 | NM_ITS ---
FINAL REPORT CLINICAL HISTORY: POSTPRANDIAL DIARRHEA AND ABD PAIN 7:20 am 8.27 [facility] tc choletec 1.3 mcg of cck COMPARISON: None FINDINGS: Sequential anterior projection images of the abdomen were obtained after the intravenous injection of 8.27 mCi technetium 99m Choletec. There is normal uptake of radiotracer by the liver. The bile ducts are visualized by 5 minutes. Gallbladder activity is seen by 5 minutes. Bowel activity is noted by 10 minutes. After 1 hour, 1.3 ?g of CCK was injected intravenously for calculation of gallbladder ejection fraction. The gallbladder ejection fraction is 96%, which is within normal limits. IMPRESSION: No evidence of cystic duct or bile duct obstruction. Normal gallbladder ejection fraction of 96%. Reviewed, Interpreted and Dictated by Jing Ewing MD Transcribed by Nisha Ellison Authenticated and [facility]
[2024-12-05] MEDS: SINCALIDE 1.3 MCG in 0.9 % SODIUM CHLORIDE 50 ML 100 MCG IV (08:45)
[2024-12-05] MEDS: ISOTOPE CHOLETECH;1 DOSE (UP TO 15 MCI) IV (09:07)
[2024-12-05] MEDS: SODIUM CHLORIDE 0.9% 10ML SYR (RAD ONLY) 10 ML IV (09:07)
== END 2024-12-05 23:59 | disposition home or self-care (01) ==
LOC: RAD 07:01
PROVIDERS: PCP Internal Medicine Adolescent Medicine; Visit Provider Nurse Practitioner Family
DX: K52.9 Noninfective gastroenteritis and colitis, unspecified (principal); R10.84 Generalized abdominal pain
CPT/HCPCS: 78227; A9537; J2805